=== PATIENT | male | born 1950 | race Caucasian/White ===

== ENCOUNTER 2021-07-30 04:42 | Emergency (ER) | payer BC ==
[~2021-07-30] VITALS: Ht 177.8 cm; Wt 104.3 kg
[2021-07-30] MEDS ORDERED: CYCLOBENZAPRINE5 MG PO (05:03)
[2021-07-30] MEDS ORDERED: LIDOCAINE1 EAC1 TD (05:03)
== END 2021-07-30 06:51 | disposition home or self-care (01) ==
LOC: ER 04:47
DX: M25.551 Pain in right hip (principal); I25.10 Atherosclerotic heart disease of native coronary artery without angina pectoris; Z95.1 Presence of aortocoronary bypass graft
CPT/HCPCS: 99283

== ENCOUNTER 2022-08-21 06:28 | Emergency (ER) | payer BC, MEDICARE ==
[~2022-08-21] VITALS: Ht 177.8 cm; Wt 104.3 kg
[~2022-08-21 06:28] MED LIST: CYCLOBENZAPRINE5 MG PO; GOLYTELY SOLU4000 M1 PO; LIDOCAINE1 EAC1 TD
[2022-08-21] MEDS ORDERED: LIDOCAINE-PRILO30 GM TOP (06:53)
[2022-08-21] MEDS ORDERED: CEFUROXIME250 MG PO (06:53)
[2022-08-21] MEDS ORDERED: LIDOCAINE/PRILOCAINE 2.5-2.5% KIT TOP ONE (07:00)
== END 2022-08-21 07:42 | disposition home or self-care (01) ==
LOC: ER 06:39
DX: R33.9 Retention of urine, unspecified (principal); I25.10 Atherosclerotic heart disease of native coronary artery without angina pectoris; Z95.1 Presence of aortocoronary bypass graft
CPT/HCPCS: 51700; 87086; 99283

== ENCOUNTER 2022-09-03 05:23 | Emergency (ER) | payer BC, MEDICARE ==
[~2022-09-03] VITALS: Ht 177.8 cm; Wt 104.3 kg
[~2022-09-03 05:23] MED LIST changes: +CEFUROXIME250 MG PO; +LIDOCAINE-PRILO30 GM TOP
[2022-09-03 06:38] VITALS: BP 126/74
== END 2022-09-03 06:45 | disposition home or self-care (01) ==
LOC: ER 05:30
DX: Z46.6 Encounter for fitting and adjustment of urinary device (principal); I25.10 Atherosclerotic heart disease of native coronary artery without angina pectoris; Z95.1 Presence of aortocoronary bypass graft
CPT/HCPCS: 87086; 99283

== ENCOUNTER → 2022-09-15 | Outpatient (CLI) | payer BC ==
[2022-09-15 16:51] LABS: CREATININE, SERUM 0.82 mg/dL (0.72-1.25)
== END ==
LOC: CT 16:04
PROVIDERS: ATTEND Urology
DX: R97.20 Elevated prostate specific antigen [PSA] (principal)
CPT/HCPCS: 36415; 74174; 82565; 84520

== ENCOUNTER 2022-11-07 12:20 | Inpatient (IN) | payer BC ==
[2022-11-04 14:52] LABS: BASOPHILS % 0.6 % (0.0-1.0); EOSINOPHILS # (AUTO) 0.2 (0.0-0.4); HEMATOCRIT 34.1 % (38.2-49.6); HEMOGLOBIN 10.5 g/dL (14.0-18.0); LYMPHOCYTES # (AUTO) 1.5 (1.0-3.2); MEAN CORPUSCULAR HEMOGLOBIN 26.6 pg (28-32); MEAN CORPUSCULAR HGB CONC 30.8 g/dL (31-35); MEAN CORPUSCULAR VOLUME 86.3 fL (81-99); MONOCYTES # (AUTO) 0.6 (0.2-0.8); MONOCYTES % 11.5 % (4.4-11.3); NEUTROPHILS # (AUTO) 2.6 (2.1-6.9); NEUTROPHILS % 52.7 % (38.7-80.0); PLATELET COUNT 215 x10e3/uL (140-360); RED BLOOD COUNT 3.95 x10e6/uL (4.3-5.7); RED CELL DISTRIBUTION WIDTH 13.3 % (11.7-14.4)
[2022-11-04 15:10] LABS: ANION GAP 13.4 mmol/L (8-16); CALCIUM 8.7 mg/dL (8.4-10.2); CREATININE, SERUM 0.85 mg/dL (0.72-1.25); POTASSIUM 4.4 mmol/L (3.5-5.1)
[~2022-11-07] VITALS: Ht 177.8 cm; Wt 104.3 kg
[~2022-11-07 12:20] MED LIST changes: +ASPIRIN81 MG PO; +ATORVASTATIN CA10 MG PO; +FENTANYL CITRATE/PF 100MCG/2 ML INJ ONE; +FLOMAX0.4 MG PO; +LISINOPRIL10 MG PO; +METOPROLOL SUCC50 MG PO; +OMEPRAZOLE40 MG PO; +PLAVIX75 MG PO; +ZETIA10 MG PO
[2022-11-07] MEDS ORDERED: SODIUM CHLORIDE 0.9% 1000ML 1,000 ML ONE (12:55)
[2022-11-07] MEDS ORDERED: GENTAMICIN 80MG/NS 100 ML 200 ML IV ONE (12:55)
[2022-11-07] MEDS ORDERED: LEVOFLOXACIN 500MG/D5W 100ML 100 ML IV ONE (12:55)
[2022-11-07] MEDS ORDERED: PROPOFOL IV EMULSION 10 MG/ML 20 ML VIAL ONE (13:44)
[2022-11-07] MEDS ORDERED: ONDANSETRON HCL INJ 2MG/ML 2ML 2 MG/ML VIAL ONE (13:44)
[2022-11-07] MEDS ORDERED: POVIDONE IODINE 0.05% 0.05 % ML PO ONE (13:44)
[2022-11-07] MEDS ORDERED: DEXAMETHASONE SOD PHOS INJ 4 MG/ML SDV ONE (13:44)
[2022-11-07] MEDS ORDERED: LIDOCAINE HCL 2% JELLY 5 ML TUBE ONE (13:44)
[2022-11-07] MEDS ORDERED: LIDOCAINE HCL 2% LOCAL INJ 5 ML SDV VIAL INJ ONE (13:44)
[2022-11-07] MEDS ORDERED: IOPAMIDOL 610MG/1ML 300 MG/ML VIAL IV ONE (14:30)
[2022-11-07] MEDS ORDERED: DIPHENHYDRAMINE HCL 25 MG CAP PO PRN (16:15)
[2022-11-07] MEDS ORDERED: PHENAZOPYRIDINE HCL 100 MG TAB PO PRN (16:15)
[2022-11-07] MEDS ORDERED: ONDANSETRON HCL INJ 2MG/ML 2ML 2 MG/ML VIAL IV PRN (16:15)
[2022-11-07] MEDS: FENTANYL CITRATE/PF 100MCG/2 ML INJ ONE ×4 (16:21→16:38)
[2022-11-07] MEDS: MEPERIDINE HCL INJ 25 MG/ML VIAL ONE ×2 (16:25→16:45)
[2022-11-07] MEDS: HYDROMORPHONE 1MG/1ML INJ ONE ×2 (16:55→17:00)
[2022-11-07 17:41] VITALS: BP 163/94
[2022-11-07] MEDS ORDERED: XANAX1 MG PO (17:54)
[2022-11-07 17:59] LABS: BASOPHILS % 0.4 % (0.0-1.0); EOSINOPHILS # (AUTO) 0.1 (0.0-0.4); EOSINOPHILS % 2.1 % (0.0-6.0); HEMATOCRIT 34.6 % (38.2-49.6); LYMPHOCYTES # (AUTO) 0.9 (1.0-3.2); LYMPHOCYTES % 19.7 % (18.0-39.1); MEAN CORPUSCULAR HGB CONC 31.8 g/dL (31-35); MEAN CORPUSCULAR VOLUME 84.8 fL (81-99); MONOCYTES # (AUTO) 0.2 (0.2-0.8); MONOCYTES % 3.4 % (4.4-11.3); NEUTROPHILS # (AUTO) 3.5 (2.1-6.9); NEUTROPHILS % 74.2 % (38.7-80.0); PLATELET COUNT 205 x10e3/uL (140-360); RED BLOOD COUNT 4.08 x10e6/uL (4.3-5.7); RED CELL DISTRIBUTION WIDTH 13.7 % (11.7-14.4)
[2022-11-07 18:11] LABS: ANION GAP 15.4 mmol/L (8-16); CALCIUM 8.1 mg/dL (8.4-10.2); CREATININE, SERUM 0.77 mg/dL (0.72-1.25); POTASSIUM 4.4 mmol/L (3.5-5.1)
[2022-11-07] MEDS: D5.45%NS/KCL 20MEQ 1,000 ML IV SCH (18:40)
[2022-11-07] MEDS: DOCUSATE SODIUM 100 MG CAP PO SCH (18:42)
[2022-11-07] MEDS ORDERED: ALPRAZOLAM 0.25 MG TAB PO PRN (19:30)
[2022-11-07] MEDS: Morphine 2mg Syringe 2 MG/ML SYR IV PRN (19:45)
[2022-11-07] MEDS ORDERED: ACETAMINOPHEN 1000 MG/100 ML IV PRN (21:00)
[2022-11-07 22:06] VITALS: BP 160/82
[2022-11-07 23:05] VITALS: BP 160/82
[2022-11-07 23:46] VITALS: BP 135/82
[2022-11-08] MEDS: ACETAMINOPHEN/CODEINE 300MG - 30MG TAB PO PRN ×3 (00:32→15:27)
[2022-11-08] MEDS: D5.45%NS/KCL 20MEQ 1,000 ML IV SCH ×3 (04:21→15:27)
[2022-11-08] MEDS: Morphine 2mg Syringe 2 MG/ML SYR IV PRN (04:27)
[2022-11-08 05:16] VITALS: BP 125/64
[2022-11-08 05:57] LABS: BASOPHILS % 0.2 % (0.0-1.0); EOSINOPHILS % 0.2 % (0.0-6.0); HEMATOCRIT 33.7 % (38.2-49.6); HEMOGLOBIN 10.4 g/dL (14.0-18.0); LYMPHOCYTES % 15.1 % (18.0-39.1); MEAN CORPUSCULAR HEMOGLOBIN 26.9 pg (28-32); MEAN CORPUSCULAR HGB CONC 30.9 g/dL (31-35); MEAN CORPUSCULAR VOLUME 87.1 fL (81-99); MONOCYTES # (AUTO) 0.4 (0.2-0.8); MONOCYTES % 6.3 % (4.4-11.3); NEUTROPHILS # (AUTO) 5.1 (2.1-6.9); NEUTROPHILS % 77.7 % (38.7-80.0); PLATELET COUNT 202 x10e3/uL (140-360); RED BLOOD COUNT 3.87 x10e6/uL (4.3-5.7); RED CELL DISTRIBUTION WIDTH 13.5 % (11.7-14.4)
[2022-11-08 06:27] LABS: ANION GAP 10.2 mmol/L (8-16); CALCIUM 8.2 mg/dL (8.4-10.2); CREATININE, SERUM 0.77 mg/dL (0.72-1.25); POTASSIUM 4.2 mmol/L (3.5-5.1)
[2022-11-08 07:45] VITALS: BP 145/87
[2022-11-08 08:00] VITALS: BP 145/87
[2022-11-08] MEDS: DOCUSATE SODIUM 100 MG CAP PO SCH ×2 (08:35→17:27)
[2022-11-08] MEDS: LEVOFLOXACIN 500MG/D5W 100ML 100 ML IV SCH (09:17)
[2022-11-08] MEDS ORDERED: ONDANSETRON HCL 4 MG ORAL DISINTEGRATING TAB PO PRN (10:15)
[2022-11-08 12:10] VITALS: BP 142/57
[2022-11-08 16:24] VITALS: BP 141/67
[2022-11-08] MEDS ORDERED: ALPRAZOLAM 0.25 MG TAB PO PRN ×2 (17:15→21:00)
[2022-11-08] MEDS ORDERED: LISINOPRIL 20 MG TAB PO SCH (17:45)
[2022-11-08] MEDS: ALPRAZOLAM 0.25 MG TAB PO PRN ×2 (17:56→20:48)
[2022-11-08 20:00] VITALS: BP 135/72
[2022-11-08] MEDS: EZETIMIBE 10 MG TAB PO SCH (20:48)
[2022-11-08] MEDS: PANTOPRAZOLE SOD 40 MG TABEC PO SCH (20:48)
[2022-11-08] MEDS: METOPROLOL SUCCINATE 50 MG TAB XL PO SCH (20:49)
[2022-11-08] MEDS: ATORVASTATIN 10 MG TAB PO SCH (20:50)
[2022-11-08] MEDS: LISINOPRIL 20 MG TAB PO SCH (20:50)
[2022-11-09] VITALS (7 sets, daily range): BP systolic 128–163; BP diastolic 66–84
[2022-11-09 06:10] LABS: BASOPHILS % 0.3 % (0.0-1.0); EOSINOPHILS # (AUTO) 0.2 (0.0-0.4); EOSINOPHILS % 3.4 % (0.0-6.0); HEMATOCRIT 32.6 % (38.2-49.6); HEMOGLOBIN 10.1 g/dL (14.0-18.0); LYMPHOCYTES # (AUTO) 1.4 (1.0-3.2); LYMPHOCYTES % 21.8 % (18.0-39.1); MEAN CORPUSCULAR HEMOGLOBIN 26.6 pg (28-32); MEAN CORPUSCULAR VOLUME 85.8 fL (81-99); MONOCYTES # (AUTO) 0.7 (0.2-0.8); NEUTROPHILS # (AUTO) 3.9 (2.1-6.9); NEUTROPHILS % 63.3 % (38.7-80.0); PLATELET COUNT 182 x10e3/uL (140-360); RED CELL DISTRIBUTION WIDTH 14.1 % (11.7-14.4)
[2022-11-09 06:33] LABS: ANION GAP 11.2 mmol/L (8-16); CALCIUM 8.4 mg/dL (8.4-10.2); CREATININE, SERUM 0.89 mg/dL (0.72-1.25); POTASSIUM 4.2 mmol/L (3.5-5.1)
[2022-11-09] MEDS: TAMSULOSIN HCL 0.4 MG CAP PO SCH (09:56)
[2022-11-09] MEDS: LISINOPRIL 20 MG TAB PO SCH ×2 (09:57→21:37)
[2022-11-09] MEDS: DOCUSATE SODIUM 100 MG CAP PO SCH ×2 (09:57→17:55)
[2022-11-09] MEDS: PANTOPRAZOLE SOD 40 MG TABEC PO SCH (09:57)
[2022-11-09] MEDS: LEVOFLOXACIN 500MG/D5W 100ML 100 ML IV SCH (09:57)
[2022-11-09] MEDS: ALPRAZOLAM 0.25 MG TAB PO PRN (12:50)
[2022-11-09] MEDS: ACETAMINOPHEN/CODEINE 300MG - 30MG TAB PO PRN (17:54)
[2022-11-09] MEDS ORDERED: POLYETHYLENE GLYCOL 3350 17 GM PACK PO ONE (21:00)
[2022-11-09] MEDS: EZETIMIBE 10 MG TAB PO SCH (21:37)
[2022-11-09] MEDS: ATORVASTATIN 10 MG TAB PO SCH (21:37)
[2022-11-09] MEDS: METOPROLOL SUCCINATE 50 MG TAB XL PO SCH (21:37)
[2022-11-10 04:00] VITALS: BP 138/75
[2022-11-10 06:03] LABS: BASOPHILS % 0.3 % (0.0-1.0); EOSINOPHILS # (AUTO) 0.3 (0.0-0.4); EOSINOPHILS % 4.5 % (0.0-6.0); HEMATOCRIT 35.4 % (38.2-49.6); HEMOGLOBIN 10.9 g/dL (14.0-18.0); LYMPHOCYTES # (AUTO) 1.3 (1.0-3.2); LYMPHOCYTES % 20.4 % (18.0-39.1); MEAN CORPUSCULAR HEMOGLOBIN 26.7 pg (28-32); MEAN CORPUSCULAR HGB CONC 30.8 g/dL (31-35); MEAN CORPUSCULAR VOLUME 86.8 fL (81-99); MONOCYTES # (AUTO) 0.6 (0.2-0.8); MONOCYTES % 9.6 % (4.4-11.3); NEUTROPHILS # (AUTO) 4.1 (2.1-6.9); NEUTROPHILS % 64.9 % (38.7-80.0); PLATELET COUNT 189 x10e3/uL (140-360); RED BLOOD COUNT 4.08 x10e6/uL (4.3-5.7); RED CELL DISTRIBUTION WIDTH 13.9 % (11.7-14.4)
[2022-11-10 06:17] LABS: CALCIUM 8.8 mg/dL (8.4-10.2); CREATININE, SERUM 0.77 mg/dL (0.72-1.25)
[2022-11-10] MEDS: ALPRAZOLAM 0.25 MG TAB PO PRN (06:38)
[2022-11-10 09:00] VITALS: BP 138/75
[2022-11-10] MEDS ORDERED: LEVOFLOXACIN 500 MG TAB PO SCH (09:00)
[2022-11-10 09:09] VITALS: BP 140/79
[2022-11-10] MEDS: LISINOPRIL 20 MG TAB PO SCH (10:18)
[2022-11-10] MEDS: TAMSULOSIN HCL 0.4 MG CAP PO SCH (10:18)
[2022-11-10] MEDS: PANTOPRAZOLE SOD 40 MG TABEC PO SCH (10:18)
[2022-11-10] MEDS: DOCUSATE SODIUM 100 MG CAP PO SCH (10:19)
[2022-11-10 12:49] VITALS: BP 136/74
== END 2022-11-10 15:11 | disposition home or self-care (01) | DRG 714 ==
LOC: OR 12:20 → MED/SURG3 16:14
PROVIDERS: ADMIT Urology; ATTEND Internal Medicine
PROC: 0VB07ZZ Excision of Prostate, Via Natural or Artificial Opening (ICD-10-PCS; principal; 2022-11-07 14:45)
DX: N40.1 Benign prostatic hyperplasia with lower urinary tract symptoms (principal); R33.9 Retention of urine, unspecified; I10 Essential (primary) hypertension; E78.5 Hyperlipidemia, unspecified; N30.91 Cystitis, unspecified with hematuria; D64.9 Anemia, unspecified; I25.10 Atherosclerotic heart disease of native coronary artery without angina pectoris; Z88.0 Allergy status to penicillin
CPT/HCPCS: 0223U; 36415; 71046; 74420; 80048; 82948; 83735; 85025; 88304; 88305; 93005; 94799; 96360; 99252; C1758; J1100; J1170; J1580; J1956; J2001; J2175; J2270; J2405; J7030